=== PATIENT | male | born 1995 ===

== ENCOUNTER 2018-03-17 18:54 | Emergency (ER) | payer OTHER ==
[2018-03-17 19:04] VITALS: BP 110/68
--- NOTE | 2018-03-17 20:03 | UC ---
Complaint Male HPI - HPI Summary HPI Summary: This patient is a 22 year old M [place] [facility] [place] a chief complaint of an irritated foreskin since 12:00 today. The patient rates the pain 3/10 in severity. Patient reports redness on the head of his penis and pus on his penis. Patient denies fever and chills. He has had something like this twice before, for which he was given a shot that alleviated it immediately. - History of Current Complaint Chief Complaint: UCGU Stated Complaint: PERSONAL Time Seen by Provider: 03/17/18 19:54 Hx Obtained From: Patient Onset/Duration: Sudden Onset - 12:00 today, Lasting Hours - 12:00 today, Still Present Timing: Constant Severity Initially: Moderate Severity Currently: Moderate Pain Intensity: 3 Pain Scale Used: 0-10 Numeric Location: Penis Associated Signs And Symptoms: Negative: Fever - Allergies/Home Medications Allergies/Adverse Reactions: Allergies Allergy/AdvReac Type Severity Reaction Status Date / Time No Known Allergies Allergy Verified 03/17/18 19:04 Home Medications: Home Medications NK [No Home Medications Reported] 03/17/18 [History Confirmed 03/17/18] PMH/Surg Hx/FS Hx/Imm Hx Endocrine History: Diabetes - Denies Respiratory History: Asthma - Denies - Surgical History Surgical History: None - Family History Known Family History: Negative: Hypertension - Social History Alcohol Use: Rare Substance Use Type: None Smoking Status (MU): Never Smoked Tobacco Review of Systems Constitutional: Fever - Denies, Chills - Denies Genitourinary: Other - Irritated foreskin. Redness on head of his penis. Pus on penis. All Other Systems Reviewed And Are Negative: Yes Physical Exam - Summary Physical Exam Summary: VITAL SIGNS: Reviewed. GENERAL: Patient is a well-developed and nourished MALE who is lying comfortable in the stretcher. Patient is not in any acute respiratory distress. HEAD AND FACE: Normocephalic EYES: PERRLA, EOMI x 2. EARS: Hearing grossly intact. MOUTH: Oropharynx within normal limits. NECK: Supple, trachea is midline, no adenopathy, no JVD, no carotid bruit. CHEST: Symmetric, no tenderness at palpation LUNGS: Clear to auscultation bilaterally. No wheezing or crackles. CVS: Regular rate and rhythm, S1 and S2 present, no murmurs or gallops appreciated. ABDOMEN: Soft, non-tender. Bowel sounds are normal. No abdominal abnormal pulsations. EXTREMITIES: Full ROM in all major joints, no edema, no cyanosis or clubbing. NEURO: Alert and oriented x 3. No acute neurological deficits. Speech is normal and follows commands. SKIN: Dry and warm GENITOURINARY: Genitourinary exam was performed with a hardwood sawyer. Erythema on small area of the foreskin, 3 mm by 3 mm. No vesicular legions. No wounds. No discharge. He is not circumcised and testicles are descended. Normal cremasteric reflex Triage Information Reviewed: Yes Vital Signs: Initial Vital Signs Temp 98.9 F 03/17/18 19:01 Pulse 81 03/17/18 19:01 Resp 18 03/17/18 19:01 BP 110/68 03/17/18 19:01 Pulse Ox 100 03/17/18 19:01 Vital Signs Reviewed: Yes Complaint Male Course/Dx - Course Course Of Treatment: This patient is a 22-year-old male who presents to the urgent care with a chief complaint of penile discharge. Patient has history unprotected sex. Patient was given Rocephin and azithromycin. Cultures for GC and chlamydia in urine were sent. I also send blood test for syphilis. Patient will follow-up with primary care physician. He was given instructions to return to the urgent care if he develops any other symptoms. He understands and agrees. - Differential Dx/Diagnosis Provider Diagnoses: STI Discharge - Sign-Out/Discharge Documenting (check all that apply): Patient Departure All imaging exams completed and their final reports reviewed: No Studies - Discharge Plan Condition: Stable Disposition: HOME Patient Education Materials: Sexually Transmitted Diseases (ED), Safe Sex (ED) [facility] - Additional Instructions: Take Acetaminophen or ibuprofen for pain or fever Increase your fluid intake Return to the or go to the emergency department if symptoms worsen Follow-up with primary care physician in next 2-3 days - Billing Disposition and Condition Condition: STABLE Disposition: Home - Attestation Statements Document Initiated by Scribe: Yes Documenting Scribe: Fredy Davis Provider For Whom Scribe is Documenting (Include Credential): Oseas Pierre MD Scribe Attestation: Fredy Crawford, scribed for Oseas Pierre MD on 03/17/18 at 2041. Scribe Documentation Reviewed: Yes Provider Attestation: The documentation as recorded by the scribe, Fredy Davis accurately reflects the service I personally performed and the decisions made by me, Oseas Pierre MD
[2018-03-17] MEDS ORDERED: cefTRIAXone VIAL(*) 250 MG VIAL IM ONE (20:07)
[2018-03-17] MEDS ORDERED: Azithromycin TAB* 250 MG PO ONE (20:07)
[2018-03-17] MEDS ORDERED: Lidocaine 1%* 5 ML VIAL ONE (20:15)
--- NOTE | 2018-03-18 16:25 | UC ---
- Progress Note Progress Note: 03/18/2018 Syphilis screen non reactive. Please call back Pt and notify him of result. Advised to f/u w/ his PCP if his symptoms persists. thank you Rand Hilliard PA-C. Discharge - Sign-Out/Discharge Documenting (check all that apply): Patient Departure - D/C home All imaging exams completed and their final reports reviewed: No Studies - Discharge Plan Condition: Stable Disposition: HOME Patient Education Materials: Sexually Transmitted Diseases (ED), Safe Sex (ED) Referrals: [facility] [Primary Care Provider] - Additional Instructions: Take Acetaminophen or ibuprofen for pain or fever Increase your fluid intake Return to the UC or go to the emergency department if symptoms worsen Follow-up with primary care physician in next 2-3 days - Billing Disposition and Condition Condition: STABLE Disposition: Home
== END 2018-03-17 20:34 | disposition home or self-care (01) ==
LOC: UCEAST 18:54
DX: A64 Unspecified sexually transmitted disease (principal)
CPT/HCPCS: 36415; 81003; 86592; 87491; 87591; 96372; 99202; A9270-GY; G0463; J0696

== ENCOUNTER 2019-04-29 21:36 | Emergency (ER) | payer OTHER ==
[2019-04-29 21:56] VITALS: BP 119/69
[2019-04-29] MEDS ORDERED: Penicillin G Benzathine 2.4MU* 2,400,000 UNITS/4 ML SYR IM ONE (22:28)
--- NOTE | 2019-04-29 22:57 | UC ---
Skin Complaint HPI - HPI Summary HPI Summary: PATIENT ARRIVES WITH ABOUT 5 DAYS OF ITCHY RED RASH ON HIS BILATERAL PALMS AND FINGERS. DENIES ANY UNUSUAL CONTACT. NO NEW LOTIONS, SOAPS OR DETERGENTS. WENT TO [facility] AND WAS PRESCRIBED A MEDROL DOSEPAK WHICH HE STATES IS NOT HELPING. FOR THE SAME PERIOD OF TIME HE HAS ALSO HAD A RED PAINLESS LESION ON THE TIP OF HIS PENIS. PATIENT HAS SEX WITH MEN AND IS VERY CONCERNED ABOUT SYPHILIS. HE DENIES ANY FEVERS, BODY ACHES. HAD STD TESTING INCLUDING SCREENING FOR SYPHILIS ON 04/14/19 WHICH WAS NEGATIVE HOWEVER RASH AND PENILE LESION SHOWED UP AFTERWARDS. HE HAD BEEN IN A MONOGAMOUS SEXUAL RELATIONSHIP WITH ANOTHER MALE FOR ABOUT 6 MONTHS BUT THEY TOOK A BREAK FOR ABOUT A WEEK AND A HALF SEVERAL WEEKS AGO AND DID HAVE SEXUAL RELATIONS WITH OTHER PEOPLE DURING THAT TIME. - History of Current Complaint Chief Complaint: UCRash Time Seen by Provider: 04/29/19 21:45 Stated Complaint: RASH Hx Obtained From: Patient Onset/Duration: Gradual Onset, Lasting Days, Still Present Timing: Constant Onset Severity: Mild Current Severity: Mild Pain Intensity: 0 Pain Scale Used: 0-10 Numeric Character: Redness Aggravating Factor(s): Nothing Alleviating Factor(s): Nothing Associated Signs & Symptoms: Positive: Rash - Allergy/Home Medications Allergies/Adverse Reactions: Allergies Allergy/AdvReac Type Severity Reaction Status Date / Time No Known Allergies Allergy Verified 03/17/18 19:04 Home Medications: Home Medications Tenofovir/Emtricitab 100/150NF [Truvada 100 mg-150 mg Tablet] 04/29/19 [History ] PMH/Surg Hx/FS Hx/Imm Hx Previously Healthy: Yes - Surgical History Surgical History: None - Family History Known Family History: Positive: Non-Contributory Negative: Hypertension - Social History Alcohol Use: Rare Substance Use Type: None Smoking Status (MU): Never Smoked Tobacco Review of Systems All Other Systems Reviewed And Are Negative: Yes Constitutional: Positive: Negative Skin: Positive: Rash - HANDS. ULCER ON PENIS Respiratory: Positive: Negative Cardiovascular: Positive: Negative Gastrointestinal: Positive: Negative Genitourinary: Positive: Ulceration/Lesion. Negative: Dysuria Musculoskeletal: Positive: Negative Neurological: Positive: Negative Physical Exam Triage Information Reviewed: Yes Appearance: Well-Appearing, No Pain Distress, Well-Nourished Vital Signs: Initial Vital Signs Temp 98.7 F 04/29/19 21:49 Pulse 78 04/29/19 21:49 Resp 18 04/29/19 21:49 BP 119/69 04/29/19 21:49 Pulse Ox 98 04/29/19 21:49 Vital Signs Reviewed: Yes Eyes: Positive: Conjunctiva Clear ENT: Positive: Hearing grossly normal, Pharynx normal, TMs normal Neck: Positive: Supple, Nontender, No Lymphadenopathy Respiratory: Positive: No respiratory distress, No accessory muscle use Cardiovascular: Positive: Pulses Normal Abdomen Description: Positive: Soft Musculoskeletal: Positive: No Edema Neurological: Positive: Alert Psychological: Positive: Age Appropriate Behavior Skin: Positive: Rashes - PALMS WITH ERYTHEMATOUS MOTTLING. NON TENDER. NO EXCORIATION., Other - ~8MM SHALLOW ULCERATION WITH ERYTHEMATOUS BASE ON GLANS PENIS. NON TENDER. NO INGUINAL LAD. Course/Dx - Course Course Of Treatment: UNCLEAR ETIOLOGY OF PATIENT'S SYMPTOMS. HE HAS NO CONSTITUTIONAL ILLNESS. NO FEVER, LYMPHADENOPATHY, BODY ACHES. PAINLESS LESION ON THE GLANS PENIS IS NOT ENTIRELY CONSISTENT IN APPEARANCE WITH THE PRIMARY CHANCRE OF SYPHILIS HOWEVER IT IS PAINLESS. THE MOTTLING OF THE SKIN ON HIS PALMS AND VOLAR ASPECT OF HIS FINGERS AGAIN IS NOT CLASSIC IN APPEARANCE TO THE RASH ASSOCIATED WITH SYPHILIS AND IN ADDITION IT IS NOT LOCATED ANYWHERE ELSE ON HIS BODY. GIVEN HIS HIGH RISK FOR STI PATIENT WAS TREATED WITH BICILLIN LA 2.4 MILLION UNITS TO COVER FOR SYPHILIS. BLOOD DRAWN TO RETEST FOR THIS CONDITION. ADVISED THAT IF HE DOES HAVE SYPHILIS HE SHOULD NOT HAVE SEX FOR AT LEAST 7 DAYS HOWEVER DUE TO THE UNCLEAR NATURE OF HIS CONDITION I RECOMMENDED FOLLOW-UP WITH [facility] FOR SECOND OPINIONS AND FURTHER RECOMMENDATIONS. PRESENTATION NOT CLINICALLY CONSISTENT WITH CHANCROID. CONSIDER LYMPHOGRANULOMA VENEREUM - BUT AGAIN, COURSE IS NOT TYPICAL. LESION HAS BEEN PERSISTENT AND PT DOES NOT HAVE LAD. - Diagnoses Provider Diagnosis: Penile lesion, Hand dermatitis Discharge ED - Sign-Out/Discharge Documenting (check all that apply): Patient Departure All imaging exams completed and their final reports reviewed: No Studies - Discharge Plan Condition: Stable Disposition: HOME Prescriptions: predniSONE TAB* [Deltasone TAB*] 50 mg PO DAILY #5 tab Referrals: Reva Bowie DO [Primary Care Provider] - 2 Weeks Additional Instructions: UNCLEAR ETIOLOGY OF YOUR PENILE LESION AND HAND DERMATITIS. THEY MAY OR MAY NOT BE RELATED. YOU HAVE RECEIVED AN INJECTION OF BICILLIN LA (PENICILLIN) 2.4 MILLION UNITS TREATMENT FOR PRESUMPTIVE SYPHILIS. BLOOD DRAWN TO TEST FOR SYPHILIS TODAY. WHILE YOU CAN HAVE PAINLESS GENITAL ULCERS AND A RASH ON YOUR PALMS WITH SYPHILIS THE APPEARANCE OF BOTH OF THESE ON YOU IS NOT TYPICAL FOR THAT CONDITION. I RECOMMEND YOU CALL DERMATOLOGY FIRST THING TOMORROW MORNING TO SCHEDULE A FOLLOW-UP APPOINTMENT AT THEIR NEXT AVAILABLE OPENING FOR SECOND OPINION. THEY MAY BE ABLE TO OFFER YOU FURTHER TESTING. IF THE ITCHY RASH ON YOUR HANDS DOES NOT RESOLVE OVER THE NEXT FEW DAYS GO AHEAD AND START THE PREDNISONE PRESCRIBED. DERMATOLOGY IN [place] DR. TOMASA JENSEN (DOES NOT SEE PTS ON MONDAYS OR TUESDAYS) [facility], [facility] [address]; [address] [place] [address] Dr. Louann Pineda Address: [facility] [place] [address] DR. TONI GALLOWAY, DR. JOSE OROURKE [facility] [address] [place] [address] [place] [address] [address] [place] Dr[address] Peg Hua DERMATOLOGY [place] DR. TONI GALLOWAY [phone] [facility] [place] Address: [address] [place] [address] - [place] Disposition and Condition Condition: STABLE Disposition: Home
== END 2019-04-29 23:27 | disposition home or self-care (01) ==
LOC: UCEAST 21:36
DX: L30.9 Dermatitis, unspecified (principal); N48.89 Other specified disorders of penis
CPT/HCPCS: 36415; 86780; 96372; 99212; G0463; J0561